=== PATIENT | male | born 1955 | race Caucasian/White ===

== ENCOUNTER → 2017-08-12 | Outpatient (CLI) | payer MEDICARE ==
[~2017-08-12] MED LIST: AMLO5TAB2 PO; METF500T27 PO; METO25TA35 PO; PRAV20TA2 PO; WARF1TAB74 PO; WARF2TAB7 PO
== END ==
LOC: CFH 06:48
PROVIDERS: ATTEND Family Medicine
DX: M51.36 Other intervertebral disc degeneration, lumbar region (principal); M51.26 Other intervertebral disc displacement, lumbar region; M48.061 Spinal stenosis, lumbar region without neurogenic claudication; I71.4 Abdominal aortic aneurysm, without rupture; M25.78 Osteophyte, vertebrae
CPT/HCPCS: 72148

== ENCOUNTER 2017-11-16 09:52 | Emergency (ER) | payer MEDICARE ==
[~2017-11-16] VITALS: Ht 170.2 cm; Wt 127.0 kg
[~2017-11-16 09:52] MED LIST changes: -WARF2TAB7 PO; +WARF2TAB99 PO
[2017-11-16] MEDS ORDERED: VALS1TAB26 PO (10:55)
[2017-11-16] MEDS ORDERED: GABA-827 PO (10:55)
[2017-11-16] MEDS ORDERED: TIZA4CAP PO (10:55)
[2017-11-16 11:21] LABS: BASOPHILS # (AUTO) 0.04 x10^3/uL (0-0.1); BASOPHILS % (AUTO) 0 % (0-1); EOSINOPHILS # (AUTO) 0.16 x10^3/uL (0-0.4); EOSINOPHILS % (AUTO) 2 % (1-7); LYMPHOCYTES % (AUTO) 15 % (22-44); MD NO; MEAN CORPUSCULAR HEMOGLOBIN 29.2 pg (27.5-34.5); MEAN CORPUSCULAR HGB CONC 34.5 g/dL (33.2-36.2); MEAN CORPUSCULAR VOLUME 84.8 fL (81-97); MEAN PLATELET VOLUME 8.7 fL (7.4-10.4); MONOCYTES # (AUTO) 0.44 x10^3/uL (0.2-0.8); MONOCYTES % (AUTO) 5 % (2-9); NEUTROPHILS # (AUTO) 7.34 x10^3/uL (1.8-6.8); NEUTROPHILS % (AUTO) 78 % (42-75); PLATELET COUNT 250 x10^3/uL (130-400); RED BLOOD COUNT 5.38 x10^6/uL (4.38-5.82)
[2017-11-16 11:27] LABS: INTERNATIONAL NORMALIZED RATIO 2.68 (0.93-1.1); PROTHROMBIN TIME 27.3 Seconds (9.6-11.5)
[2017-11-16 11:30] LABS: ALBUMIN 4.1 g/dL (3.4-5.0); ANION GAP 8 mmol/L (5-15); CHLORIDE 107 mmol/L (98-107)
[2017-11-16 12:40] LABS: MICROSCOPIC INDICATED
[2017-11-16 12:44] LABS: CULTURE INDICATED? YES
[2017-11-16] MEDS ORDERED: MORPHINE SULFATE 4 MG/ML, 1ML IVPush PRN (13:30)
[2017-11-16] MEDS ORDERED: ONDANSETRON 2MG/ML, 2ML IVPush ONE (13:30)
[2017-11-16] MEDS ORDERED: SODIUM CHLORIDE FLUSH 10ML SYR IVF ONE (13:30)
[2017-11-16] MEDS ORDERED: ONDANSETRON 2MG/ML, 2ML ONE (13:32)
[2017-11-16] MEDS ORDERED: MORPHINE SULFATE 4 MG/ML, 1ML ONE (13:33)
[2017-11-16 13:39] VITALS: BP 183/103
[2017-11-16] MEDS ORDERED: OMNIPAQUE 350 MG/ML, 150 ML BOTTLE ONE (14:17)
== END 2017-11-16 15:31 | disposition home or self-care (01) ==
LOC: ED 15:23
DX: N28.89 Other specified disorders of kidney and ureter (principal); R31.9 Hematuria, unspecified; E78.5 Hyperlipidemia, unspecified; I10 Essential (primary) hypertension; E11.9 Type 2 diabetes mellitus without complications; Z79.899 Other long term (current) drug therapy; Z79.84 Long term (current) use of oral hypoglycemic drugs; Z88.0 Allergy status to penicillin
CPT/HCPCS: 36415; 74176; 74177; 80048; 81001; 82040; 85025; 85610; 87086; 96374; 96375; 99285; J2405; Q9967

== ENCOUNTER 2017-11-20 11:32 | Emergency (ER) | payer MEDICARE ==
[~2017-11-20] VITALS: Ht 170.2 cm; Wt 130.0 kg
[~2017-11-20 11:32] MED LIST changes: +GABA-827 PO; +TIZA4CAP PO; +VALS1TAB26 PO
[2017-11-20] MEDS ORDERED: ONDANSETRON 2MG/ML, 2ML IVPush ONE (12:00)
[2017-11-20] MEDS ORDERED: HYDROmorphone 2 MG/ML, 1ML ONE ×2 (12:17→14:47)
[2017-11-20] MEDS ORDERED: ONDANSETRON 2MG/ML, 2ML ONE (12:20)
[2017-11-20] MEDS: HYDROmorphone 2 MG/ML, 1ML IVPush PRN ×2 (12:24→14:48)
[2017-11-20 14:32] LABS: MICROSCOPIC AUTO
[2017-11-20 15:03] LABS: CULTURE INDICATED? NO
[2017-11-20] MEDS ORDERED: KETOROLAC 30 MG/1 ML IVPush ONE (15:30)
[2017-11-20] MEDS ORDERED: KETOROLAC 30 MG/1 ML ONE (15:36)
[2017-11-20 15:41] VITALS: BP 160/93
== END 2017-11-20 16:17 | disposition home or self-care (01) ==
LOC: ED 12:41
DX: N13.2 Hydronephrosis with renal and ureteral calculous obstruction (principal); R31.9 Hematuria, unspecified; E78.5 Hyperlipidemia, unspecified; I10 Essential (primary) hypertension; E11.40 Type 2 diabetes mellitus with diabetic neuropathy, unspecified; Z87.891 Personal history of nicotine dependence
CPT/HCPCS: 74176; 81001; 96374; 96375; 96376; 99285; J1170; J1885; J2405

== ENCOUNTER → 2017-12-04 | Outpatient (CLI) | payer MEDICARE ==
[~2017-12-04] MED LIST changes: +FUROSEMIDE 20 MG/2 ML ONE
== END | disposition home or self-care (01) ==
LOC: PETCFH 09:50
PROVIDERS: ATTEND Urology
DX: D49.512 Neoplasm of unspecified behavior of left kidney (principal); N28.89 Other specified disorders of kidney and ureter; I10 Essential (primary) hypertension; E11.40 Type 2 diabetes mellitus with diabetic neuropathy, unspecified; Z79.84 Long term (current) use of oral hypoglycemic drugs
CPT/HCPCS: 78708; A9562; J1940

== ENCOUNTER → 2018-02-17 | Outpatient (CLI) | payer MEDICARE ==
[~2018-02-17] MED LIST changes: -AMLO5TAB2 PO; +AMLO5TAB7 PO; -FUROSEMIDE 20 MG/2 ML ONE; +GADOBUTROL 15 MMOL/15 ML VIAL ONE
== END | disposition home or self-care (01) ==
LOC: RAD 15:53
PROVIDERS: ATTEND Urology
DX: N28.89 Other specified disorders of kidney and ureter (principal); D18.03 Hemangioma of intra-abdominal structures; I71.9 Aortic aneurysm of unspecified site, without rupture; K76.0 Fatty (change of) liver, not elsewhere classified; D49.512 Neoplasm of unspecified behavior of left kidney
CPT/HCPCS: 74183; A9585

== ENCOUNTER → 2018-02-22 | Outpatient (CLI) | payer MEDICARE ==
[~2018-02-22] MED LIST changes: -GADOBUTROL 15 MMOL/15 ML VIAL ONE; +REGADENOSON 0.4 MG/5 ML SYRINGE ONE
== END | disposition home or self-care (01) ==
LOC: CFH 11:55
PROVIDERS: ATTEND Internal Medicine Cardiovascular Disease
DX: Z01.810 Encounter for preprocedural cardiovascular examination (principal); I10 Essential (primary) hypertension; R00.1 Bradycardia, unspecified
CPT/HCPCS: 78452; 93017; A9502; J2785

== ENCOUNTER 2018-11-25 12:30 | Outpatient (CLI) | payer MEDICARE ==
[~2018-11-25 12:30] MED LIST changes: +AMLO-150 PO; -AMLO5TAB7 PO; -REGADENOSON 0.4 MG/5 ML SYRINGE ONE
== END 2018-11-25 23:59 | disposition home or self-care (01) ==
LOC: CFH 12:30
PROVIDERS: ATTEND Urology
DX: C64.9 Malignant neoplasm of unspecified kidney, except renal pelvis (principal); I71.4 Abdominal aortic aneurysm, without rupture; N28.1 Cyst of kidney, acquired; D18.09 Hemangioma of other sites; Z95.0 Presence of cardiac pacemaker
CPT/HCPCS: 71046; 72195; 74181; 82565

== ENCOUNTER 2019-05-19 09:35 | Outpatient (CLI) | payer MEDICARE | END 2019-05-19 23:59 | disposition home or self-care (01) | LOC: CVU 09:35 | PROVIDERS: ATTEND Internal Medicine Cardiovascular Disease | DX: I08.1 Rheumatic disorders of both mitral and tricuspid valves (principal); I11.9 Hypertensive heart disease without heart failure; E11.9 Type 2 diabetes mellitus without complications; E78.5 Hyperlipidemia, unspecified; Z95.2 Presence of prosthetic heart valve | CPT/HCPCS: 93306 ==

== ENCOUNTER → 2020-01-31 | Outpatient (CLI) | payer MEDICARE | END | disposition home or self-care (01) | LOC: CFH 12:34 | PROVIDERS: ATTEND Urology | DX: I70.0 Atherosclerosis of aorta (principal); I71.9 Aortic aneurysm of unspecified site, without rupture; Z95.2 Presence of prosthetic heart valve; R91.8 Other nonspecific abnormal finding of lung field; K40.30 Unilateral inguinal hernia, with obstruction, without gangrene, not specified as recurrent; M51.36 Other intervertebral disc degeneration, lumbar region; K57.30 Diverticulosis of large intestine without perforation or abscess without bleeding; Z85.528 Personal history of other malignant neoplasm of kidney; Z90.5 Acquired absence of kidney | CPT/HCPCS: 71250; 74176 ==

== ENCOUNTER → 2020-08-14 | Outpatient (CLI) | payer MEDICARE | END | disposition home or self-care (01) | LOC: CFH 12:58 | PROVIDERS: ATTEND Physician Assistant | DX: I71.4 Abdominal aortic aneurysm, without rupture (principal); K40.30 Unilateral inguinal hernia, with obstruction, without gangrene, not specified as recurrent; Z90.5 Acquired absence of kidney; Z85.528 Personal history of other malignant neoplasm of kidney | CPT/HCPCS: 74176 ==